=== PATIENT | male | born 1990 | race Caucasian/White ===

== ENCOUNTER 2019-07-08 15:35 | Emergency (ER) | payer MEDICAID ==
[~2019-07-08] VITALS: Ht 167.6 cm; Wt 81.2 kg
[2019-07-08 15:40] VITALS: BP 132/87
--- NOTE | 2019-07-08 15:55 | NUR ---
Pt c/o sore throat with generalized headache s/p fish bone stuck in right side of throat since friday accompanied. No respiratory distress noted at this time. +2 enlargement on the right tonsil and +1 enlargement on the left tonsil with erythema bilateral but w/o exudate noticed upon assessment. +1 right-sided submandibular lymph node enlargement and bilateral frontal sinus tenderness noticed on palpation. PATIENT STATES PAIN OF 10/10 AT THIS TIME; VSS; PATIENT POSITIONED FOR COMFORT; HOB ELEVATED; BEDRAILS UP X1; BED DOWN. ER MD MADE AWARE OF PT STATUS.
[2019-07-08] MEDS: LIDOCAINE VISCOUS 2% 20 ML UDC PO ONE (17:09)
--- NOTE | 2019-07-08 17:40 | NUR ---
DR. JAUREGUI IS RE-EVALUATING THE PT AT BEDSIDE.
[2019-07-08 17:55] VITALS: BP 118/81
--- NOTE | 2019-07-08 17:55 | NUR ---
Patient does not wish to proceed with medical care recommended by Dr. Scott. Patient given information related to possible complications, up to and including , which could occur as a result of leaving hospital at this time. Patient verbalizes understanding of risks involved leaving against medical advice. Patient has signed AMA form.
== END 2019-07-08 17:55 | disposition left against medical advice (07) ==
LOC: MED 15:35
DX: T18.128A Food in esophagus causing other injury, initial encounter (principal); X58.XXXA Exposure to other specified factors, initial encounter; Y93.89 Activity, other specified; Y92.89 Other specified places as the place of occurrence of the external cause; Y99.8 Other external cause status
CPT/HCPCS: 70360; 99283

== ENCOUNTER 2019-07-08 19:41 | Emergency (ER) | payer MEDICAID ==
[~2019-07-08] VITALS: Ht 170.2 cm; Wt 81.6 kg
[2019-07-08 19:45] VITALS: BP 129/79
--- NOTE | 2019-07-08 19:46 | NUR ---
ASSESSING PT IN TRIAGE.
--- NOTE | 2019-07-08 19:53 | NUR ---
PT TAKEN TO BED 4
--- NOTE | 2019-07-08 19:57 | NUR ---
PT SWALLOWED A FISHBONE FRIDAY AND HAS HAD DISCOMFORT SINCE. CAME TO ER EARLIER TODAY THEN LEFT AMA DUE TO NOT WANTING TO BE ADMITTED. PT STATES PAIN HAS INCREASED, HAS PAIN WITH SWALLOWING AND TALKING. PT ABLE TO SPEAK, NO SOB, ABLE TO SWALLOW JUST C/O PAIN. PT HAS TAKEN MOTRIN FOR THE PAIN WITH NO RELIEF. BED IN LOWEST POSITION AND SIDERAIL X 1. NKA NO MED HX NO HEALTH ISSUES
--- NOTE | 2019-07-08 20:00 | NUR ---
LAB AT BEDSIDE
[2019-07-08 20:13] LABS: EOSINOPHILS # (AUTO) 0.6 K/uL (0-0.4); EOSINOPHILS % (AUTO) 4.7 % (0.0-4.0); HEMATOCRIT 43.7 % (36-52); HEMOGLOBIN 14.2 g/dL (12.0-18.0); LYMPHOCYTES # (AUTO) 4.5 K/uL (2.0-11.5); MEAN CORPUSCULAR HEMOGLOBIN 28 pg (27-31); MEAN CORPUSCULAR HGB CONC 33 g/dL (33-37); MEAN CORPUSCULAR VOLUME 84.8 fL (80-94); MONOCYTES # (AUTO) 1.4 K/uL (0.8-1.0); MONOCYTES % (AUTO) 11.5 % (1.7-9.3); NEUTROPHILS # (AUTO) 5.5 K/uL (1.8-7.7); NEUTROPHILS % (AUTO) 45.8 % (42.2-75.2); PLATELET COUNT (AUTO) 232 K/uL (140-450); RED BLOOD CELL COUNT(AUTO) 5.16 MIL/uL (4.20-6.10); WHITE BLOOD COUNT (AUTO) 11.9 K/uL (4.8-10.8)
--- NOTE | 2019-07-08 20:15 | NUR ---
PT TAKEN TO CT VIA WHEELCHAIR
[2019-07-08] MEDS: NACL 0.9% 1,000 ML IV ONE (20:20)
[2019-07-08 20:23] LABS: ALBUMIN 3.7 g/dL (3.4-5.0); CARBON DIOXIDE 30.7 mmol/L (21-32); POTASSIUM 3.7 mmol/L (3.5-5.1); TOTAL BILIRUBIN 0.3 mg/dL (0.0-1.0)
--- NOTE | 2019-07-08 20:29 | NUR ---
PT BACK FROM CT
[2019-07-08] MEDS: LIDOCAINE VISCOUS 2% 20 ML UDC PO ONE (21:18)
[2019-07-08] MEDS: KETOROLAC 30 MG/ML VIAL IVP ONE (21:20)
--- NOTE | 2019-07-08 21:35 | NUR ---
THROAT SWABBED FOR STREP PER ORDER, LAB RECEIVED SPECIMEN
[2019-07-08 22:05] VITALS: BP 124/76
--- NOTE | 2019-07-08 22:05 | NUR ---
IV removed, catheter intact and site benign. Applied folded 4x4 gauze and tape to stop bleeding.
--- NOTE | 2019-07-08 22:05 | NUR ---
Patient discharged with v/s stable. Written and verbal after care instructions given and explained. Patient alert, oriented and verbalized understanding of instructions. Ambulatory with steady gait. All questions addressed prior to discharge. ID band removed. Patient advised to follow up with PMD. Rx of AMOXICILLIN, NORCO, NAPROXEN given. Patient educated on indication of medication including possible reaction and side effects. Opportunity to ask questions provided and answered.
== END 2019-07-08 22:05 | disposition home or self-care (01) ==
LOC: MED 19:41
DX: J02.9 Acute pharyngitis, unspecified (principal)
CPT/HCPCS: 36415; 70491; 80053; 85025; 87081; 96374; 99285; J1885; J7030; Q9967